=== PATIENT | male | born 1950 | race Caucasian/White ===

== ENCOUNTER 2020-07-30 18:41 | Emergency (ER) | payer OTHER, MEDICAID ==
[~2020-07-30] VITALS: Ht 182.9 cm; Wt 99.8 kg
[2020-07-30 18:45] VITALS: BP_SYST 151
[2020-07-30 19:34] LABS: BASOPHILS # (AUTO) 0.1 K/uL (0.0-0.2); BASOPHILS % (AUTO) 0.8 % (0.0-2.0); EOSINOPHILS # (AUTO) 0.6 K/uL (0.0-0.4); EOSINOPHILS % (AUTO) 6.4 % (0.0-4.0); HEMATOCRIT 34.4 % (36-54); HEMOGLOBIN 11.6 g/dL (14.0-18.0); LYMPHOCYTES # (AUTO) 2.8 K/uL (1.0-5.5); LYMPHOCYTES % (AUTO) 28.1 % (20.5-51.5); MEAN CORPUSCULAR HEMOGLOBIN 31 pg (27-31); MEAN CORPUSCULAR HGB CONC 34 % (32-36); MEAN CORPUSCULAR VOLUME 92 fL (79.0-98.0); MONOCYTES # (AUTO) 1.1 K/uL (0.0-1.0); MONOCYTES % (AUTO) 11.1 % (1.7-9.3); NEUTROPHILS # (AUTO) 5.3 K/uL (1.8-7.7); NEUTROPHILS % (AUTO) 53.6 % (40.0-70.0); PLATELET COUNT (AUTO) 247 K/uL (130-430); RED BLOOD CELL COUNT(AUTO) 3.75 MIL/uL (4.2-6.2); RED CELL DISTRIBUTION WIDTH 15.5 % (9.0-15.0); WHITE BLOOD COUNT (AUTO) 9.8 K/uL (4.8-10.8)
[2020-07-30 20:24] LABS: ANION GAP 6 (5-15); CALCIUM 8.6 mg/dL (8.4-11.0); CHLORIDE 93 mmol/L (98-107); CREATININE 0.84 mg/dL (0.55-1.30); GLUCOSE 117 mg/dL (70-99); POTASSIUM 4.1 mmol/L (3.5-5.1); SODIUM SERUM 127 mmol/L (136-145); UREA NITROGEN, BLOOD 15 mg/dL (8-21)
[2020-07-30 20:29] LABS: ALANINE AMINOTRANSFERASE 33 U/L (12-78); ALBUMIN 3.7 g/dL (3.4-4.8); ASPARTATE AMINOTRANSFERASE 22 U/L (10-37); TOTAL BILIRUBIN 0.3 mg/dL (0.0-1.0)
[2020-07-30 20:45] LABS: ACETAMINOPHEN < 1 ug/mL (1-30); GFR AFRICAN AMERICAN 117 mL/min (>90)
[2020-07-30 20:46] LABS: ALCOHOL, BLOOD < 3 mg/dL (<10)
[2020-07-30 20:50] LABS: CHOLESTEROL 189 mg/dL (<200); HDL CHOLESTEROL 39 mg/dL (>45); LDL CHOLESTEROL 129 mg/dL (<100); TRIGLYCERIDES 196 mg/dL (30-150)
[2020-07-30 23:15] LABS: BILIRUBIN,URINE NEGATIVE (NEGATIVE); BLOOD, URINE NEGATIVE (NEGATIVE); CLARITY/URINE CLEAR (CLEAR); COLOR,URINE YELLOW (YELLOW); GLUCOSE,URINE NEGATIVE (NEGATIVE); KETONES,URINE NEGATIVE (NEGATIVE); LEUKOCYTE ESTERASE ,URINE NEGATIVE (NEGATIVE); NITRITE, URINE NEGATIVE (NEGATIVE); PROTEIN URINE NEGATIVE (NEGATIVE)
[2020-07-30 23:36] LABS: BARBITURATE, URINE NEGATIVE (NEG <=200); BENZODIAZEPINE, URINE NEGATIVE (NEG <=150); CANNABINOID, URINE NEGATIVE (NEG <=50); COCAINE, URINE NEGATIVE (NEG <=150); METHAMPHETAMINES SCREEN,URINE NEGATIVE (NEG <=500); OPIATE, URINE NEGATIVE (NEG <=100); PHENCYCLIDINE SCREEN,URINE NEGATIVE (NEG <=25); UR TRICYCLIC ANTIDEPRESSANTS NEGATIVE (NEG <=300); URINE AMPHETAMINE NEGATIVE (NEG <=500); URINE METHADONE NEGATIVE (NEG <=200); URINE OXYCODONE SCREEN NEGATIVE (NEG <=100); URINE PROPOXYPHENE SCREEN NEGATIVE (NEG <=300)
[2020-07-31 00:30] VITALS: BP_SYST 151
== END 2020-07-31 00:30 ==
LOC: SED 18:41
DX: Z02.89 Encounter for other administrative examinations (principal); F29 Unspecified psychosis not due to a substance or known physiological condition; I10 Essential (primary) hypertension; Z20.822 Contact with and (suspected) exposure to COVID-19; Z79.899 Other long term (current) drug therapy
CPT/HCPCS: 36415; 80053; 80061; 80307; 81003; 82962; 83036; 85025; 87081; 87426; 99285; G0480; G0481; G0482

== ENCOUNTER 2021-02-14 17:32 | Emergency (ER) | payer OTHER, MEDICAID ==
[~2021-02-14] VITALS: Ht 182.9 cm; Wt 99.8 kg
[2021-02-14 17:35] VITALS: BP_SYST 134
--- NOTE | 2021-02-14 17:35 | NUR ---
Patient to ER bed 1 for evaluation. Side rails up. Report rec'd from EMT and chart.
--- NOTE | 2021-02-14 17:35 | NUR ---
Pt. svitlana GOODWIN from [facility], report from center stated pt. c/o painful urination when asked pt. he denies that states has back pain 11/13 but states always has back pain, pt AAO to name and birthdate but states homeless and denies knowing why he is here
--- NOTE | 2021-02-14 17:44 | NUR ---
ER at bedside examining patient.
[2021-02-14 18:14] LABS: BASOPHILS # (AUTO) 0.1 K/uL (0.0-0.2); BASOPHILS % (AUTO) 0.8 % (0.0-2.0); EOSINOPHILS # (AUTO) 0.6 K/uL (0.0-0.4); EOSINOPHILS % (AUTO) 7.1 % (0.0-4.0); HEMOGLOBIN 12.7 g/dL (14.0-18.0); LYMPHOCYTES # (AUTO) 2.6 K/uL (1.0-5.5); LYMPHOCYTES % (AUTO) 33.5 % (20.5-51.5); MEAN CORPUSCULAR HEMOGLOBIN 32 pg (27-31); MEAN CORPUSCULAR HGB CONC 34 % (32-36); MEAN CORPUSCULAR VOLUME 94 fL (79.0-98.0); MONOCYTES # (AUTO) 0.9 K/uL (0.0-1.0); MONOCYTES % (AUTO) 11.3 % (1.7-9.3); NEUTROPHILS # (AUTO) 3.7 K/uL (1.8-7.7); NEUTROPHILS % (AUTO) 47.3 % (40.0-70.0); PLATELET COUNT (AUTO) 223 K/uL (130-430); RED BLOOD CELL COUNT(AUTO) 3.94 MIL/uL (4.2-6.2); RED CELL DISTRIBUTION WIDTH 15.1 % (9.0-15.0); WHITE BLOOD COUNT (AUTO) 7.9 K/uL (4.8-10.8)
--- NOTE | 2021-02-14 18:53 | NUR ---
radiology at bedside for chest xray
[2021-02-14 18:58] LABS: CALCIUM 8.6 mg/dL (8.4-11.0); CREATININE 0.83 mg/dL (0.55-1.30); POTASSIUM 3.9 mmol/L (3.5-5.1)
--- NOTE | 2021-02-14 19:01 | NUR ---
Received report from CY Jaimes and continue care of patient.
--- NOTE | 2021-02-14 19:17 | NUR ---
Given Sanwiches and water as patient request.
[2021-02-14] MEDS ORDERED: DIVA250T PO (19:26)
[2021-02-14] MEDS ORDERED: IBUP-1968 PO (19:26)
[2021-02-14] MEDS ORDERED: CRAN450T9 PO (19:26)
[2021-02-14] MEDS ORDERED: FLEETMO RC (19:26)
[2021-02-14] MEDS ORDERED: DONE10TA44 PO (19:26)
[2021-02-14] MEDS ORDERED: DOCU-144 PO (19:26)
[2021-02-14] MEDS ORDERED: BISA-79 RC (19:26)
[2021-02-14] MEDS ORDERED: ASCO500T20 PO (19:26)
--- NOTE | 2021-02-14 20:20 | NUR ---
Urine specimen collected and sent to lab.
[2021-02-14 20:28] LABS: BILIRUBIN,URINE NEGATIVE (NEGATIVE); BLOOD, URINE NEGATIVE (NEGATIVE); CLARITY/URINE CLEAR (CLEAR); COLOR,URINE YELLOW (YELLOW); GLUCOSE,URINE NEGATIVE (NEGATIVE); KETONES,URINE TRACE (NEGATIVE); LEUKOCYTE ESTERASE ,URINE 1+ (NEGATIVE); NITRITE, URINE NEGATIVE (NEGATIVE); PH,URINE 5.5 (5.0-8.0); PROTEIN URINE NEGATIVE (NEGATIVE); UROBILINOGEN,URINE 0.2 (0.2-1.0)
[2021-02-14] MEDS ORDERED: cefTRIAXone 1 GM in LIDOCAINE 1%, 20 ML MDV 2.1 ML IM ONE (21:00)
[2021-02-14 21:03] LABS: WBC,URINE >100 /HPF (0-3)
[2021-02-14 21:04] LABS: BACTERIA,URINE None Seen /HPF (None Seen)
[2021-02-14] MEDS ORDERED: CIPR500T5 PO (21:09)
--- NOTE | 2021-02-14 22:06 | NUR ---
Patient is sleeping, no acute distress.
--- NOTE | 2021-02-14 23:37 | NUR ---
Patient resting quietly. No acute distress noted. Vital signs within normal range.
--- NOTE | 2021-02-15 01:09 | NUR ---
Patient resting quietly. No acute distress noted. Vital signs within normal range.
--- NOTE | 2021-02-15 02:07 | NUR ---
Patient resting quietly. No acute distress noted. Vital signs within normal range.
[2021-02-15 03:10] VITALS: BP_SYST 148
--- NOTE | 2021-02-15 03:10 | NUR ---
Patient D/C to facility , will transfer to facility ([facility] ) with BLS/EMS.
--- NOTE | 2021-02-15 03:37 | NUR ---
Report given to Bobbi, Staff of [facility].
== END 2021-02-15 03:10 ==
LOC: SED 17:32
DX: N39.0 Urinary tract infection, site not specified (principal); I10 Essential (primary) hypertension; E11.9 Type 2 diabetes mellitus without complications; Z79.899 Other long term (current) drug therapy
CPT/HCPCS: 36415; 71045; 80048; 81000; 84484; 85025; 87086; 93005; 96372; 99285; J0696; J2001